=== PATIENT | male | born 1955 | race Caucasian/White ===

== ENCOUNTER 2017-11-22 05:37 | Inpatient (IN) | payer OTHER ==
[~2017-11-22] VITALS: Ht 177.8 cm; Wt 87.5 kg
[~2017-11-22 05:37] MED LIST: ALLO100; ALLO300; ALPR.5 PO; CHOL10002; CYCL10; DOXE25; FLUT110OIA; FLUT44OIA; GABA300 PO; ISODICACE; LEVSOD112; LEVSOD150 PO; LEVSOD25; LISI10; LISI20; LISI20 PO; LORA10ER; LOVA20; LOVA40; METF850; METH10; MORP15ER; NON COMPLIANT; NORT10; OMEP20ER; PHENY100ER PO; RANI150; ROSUVASTATIN CA40 MG PO; SALS750; TRAZ50 PO; [UNRECOGNIZED DRUG - OTHER]
[2017-11-22 06:20] LABS: BASOPHILS ABSOLUTE AUTO 0.01 K/mm3 (0.00-0.23); BASOPHILS PERCENT AUTO 0 % (0-2); EOSINOPHILS ABSOLUTE AUTO 0.06 K/mm3 (0.00-0.68); EOSINOPHILS PERCENT AUTO 1 % (0-6); Hematocrit 34.4 % (37.0-53.0); Hemoglobin 11.2 g/dL (13.5-17.5); IMMATURE GRAN ABSOLUTE AUTO 0.06 K/mm3 (0.00-0.10); IMMATURE GRAN PERCENT AUTO 1 % (0-1); LYMPHOCYTES ABSOLUTE AUTO 0.78 K/mm3 (0.84-5.20); LYMPHOCYTES PERCENT AUTO 9 % (21-46); MONOCYTES ABSOLUTE AUTO 0.38 K/mm3 (0.16-1.47); MONOCYTES PERCENT AUTO 4 % (4-13); Mean Corpuscular HGB 28.1 pg (26.0-34.0); Mean Corpuscular HGB Conc 32.6 g/dL (31.5-36.5); Mean Corpuscular Volume 86 fL (80-100); Mean Platelet Volume 11.2 fL (9.1-12.4); NEUTROPHILS ABSOLUTE AUTO 7.72 K/mm3 (1.96-9.15); NEUTROPHILS PERCENT AUTO 86 % (41-73); Platelet Count 329 K/mm3 (150-400); RDW Coefficient Variation 13.6 % (11.7-14.2); RDW Standard Deviation 42.9 fL (35.1-46.3); Red Blood Cell Count 3.99 M/mm3 (4.30-5.90); White Blood Cell Count 9.01 K/mm3 (4.00-11.30)
[2017-11-22 06:31] LABS: Alanine Aminotransfer (ALT/SGP 9 U/L (12-78); Albumin, Blood 2.6 g/dL (3.4-5.0); Albumin/Globulin Ratio 0.6 (0.8-1.8); Alk Phos 98 U/L (50-136); Anion Gap 10 mmol/L (6-16); Aspartate Aminotrans (AST/SGOT 12 U/L (12-37); Bilirubin, Total 0.3 mg/dL (0.1-1.0); Blood Urea Nitrogen 11 mg/dL (8-24); CO2, Blood 29 mmol/L (21-32); Calcium, Blood 9.2 mg/dL (8.5-10.1); Chloride, Blood 103 mmol/L (98-108); Globulin, Blood 4.1 g/dL (2.2-4.0); Glomerular Filtration Rate >60 (60-); Glucose, Blood 156 mg/dL (70-99); Potassium, Blood 3.2 mmol/L (3.5-5.5); Sodium, Blood 142 mmol/L (136-145); Total Protein, Blood 6.7 g/dL (6.4-8.2)
[2017-11-22] MEDS ORDERED: TRAM50 PO (06:59)
[2017-11-22] MEDS ORDERED: [UNRECOGNIZED DRUG - CODE] PO (08:26)
[2017-11-22] MEDS ORDERED: [UNRECOGNIZED DRUG - CODE] PO (08:28)
[2017-11-22] MEDS ORDERED: LISI20 PO (13:28)
[2017-11-22] MEDS ORDERED: PHENY100ER PO (13:32)
[2017-11-22] MEDS ORDERED: ACID REDUCER 1150 MG PO (13:34)
[2017-11-22] MEDS ORDERED: ROSU10TA PO (13:35)
[2017-11-22] MEDS ORDERED: TRAZ150T57 PO (13:37)
[2017-11-22] MEDS ORDERED: CHOL10002 PO (13:38)
[2017-11-22] MEDS ORDERED: METCAR500 PO (17:25)
[2017-11-23 04:01] LABS: BASOPHILS ABSOLUTE AUTO 0.01 K/mm3 (0.00-0.23); BASOPHILS PERCENT AUTO 0 % (0-2); EOSINOPHILS PERCENT AUTO 0 % (0-6); Hematocrit 30.1 % (37.0-53.0); Hemoglobin 9.8 g/dL (13.5-17.5); IMMATURE GRAN ABSOLUTE AUTO 0.05 K/mm3 (0.00-0.10); IMMATURE GRAN PERCENT AUTO 0 % (0-1); LYMPHOCYTES ABSOLUTE AUTO 0.46 K/mm3 (0.84-5.20); LYMPHOCYTES PERCENT AUTO 3 % (21-46); MONOCYTES ABSOLUTE AUTO 1.22 K/mm3 (0.16-1.47); MONOCYTES PERCENT AUTO 8 % (4-13); Mean Corpuscular HGB 27.7 pg (26.0-34.0); Mean Corpuscular HGB Conc 32.6 g/dL (31.5-36.5); Mean Corpuscular Volume 85 fL (80-100); Mean Platelet Volume 11.3 fL (9.1-12.4); NEUTROPHILS ABSOLUTE AUTO 13.09 K/mm3 (1.96-9.15); NEUTROPHILS PERCENT AUTO 88 % (41-73); Platelet Count 329 K/mm3 (150-400); RDW Standard Deviation 43.8 fL (35.1-46.3); Red Blood Cell Count 3.54 M/mm3 (4.30-5.90); White Blood Cell Count 14.83 K/mm3 (4.00-11.30)
[2017-11-23 04:28] LABS: Alanine Aminotransfer (ALT/SGP 12 U/L (12-78); Albumin, Blood 1.9 g/dL (3.4-5.0); Albumin/Globulin Ratio 0.5 (0.8-1.8); Alk Phos 68 U/L (50-136); Anion Gap 6 mmol/L (6-16); Aspartate Aminotrans (AST/SGOT 13 U/L (12-37); Bilirubin, Total 0.5 mg/dL (0.1-1.0); Blood Urea Nitrogen 8 mg/dL (8-24); Bun/Creatinine Ratio 16.6 (12.0-20.0); CO2, Blood 29 mmol/L (21-32); Calcium, Blood 8.7 mg/dL (8.5-10.1); Chloride, Blood 104 mmol/L (98-108); Creatinine, Blood 0.48 mg/dL (0.60-1.20); Globulin, Blood 3.7 g/dL (2.2-4.0); Glomerular Filtration Rate >60 (60-); Glucose, Blood 107 mg/dL (70-99); Potassium, Blood 4.2 mmol/L (3.5-5.5); Sodium, Blood 139 mmol/L (136-145); Total Protein, Blood 5.6 g/dL (6.4-8.2)
[2017-11-23 04:31] LABS: Thyroid Stimulating Hormone <0.005 uIU/mL (0.360-4.800)
[2017-11-23 04:33] LABS: Magnesium, Blood 1.1 mg/dL (1.6-2.4)
[2017-11-24 03:39] LABS: BASOPHILS ABSOLUTE AUTO 0.03 K/mm3 (0.00-0.23); BASOPHILS PERCENT AUTO 0 % (0-2); EOSINOPHILS ABSOLUTE AUTO 0.08 K/mm3 (0.00-0.68); EOSINOPHILS PERCENT AUTO 0 % (0-6); Hematocrit 28.7 % (37.0-53.0); Hemoglobin 9.3 g/dL (13.5-17.5); IMMATURE GRAN ABSOLUTE AUTO 0.13 K/mm3 (0.00-0.10); IMMATURE GRAN PERCENT AUTO 1 % (0-1); LYMPHOCYTES ABSOLUTE AUTO 0.65 K/mm3 (0.84-5.20); LYMPHOCYTES PERCENT AUTO 3 % (21-46); MONOCYTES ABSOLUTE AUTO 1.26 K/mm3 (0.16-1.47); MONOCYTES PERCENT AUTO 6 % (4-13); Mean Corpuscular HGB 27.7 pg (26.0-34.0); Mean Corpuscular HGB Conc 32.4 g/dL (31.5-36.5); Mean Corpuscular Volume 85 fL (80-100); Mean Platelet Volume 10.4 fL (9.1-12.4); NEUTROPHILS ABSOLUTE AUTO 20.46 K/mm3 (1.96-9.15); NEUTROPHILS PERCENT AUTO 90 % (41-73); Platelet Count 410 K/mm3 (150-400); RDW Coefficient Variation 14.3 % (11.7-14.2); RDW Standard Deviation 44.4 fL (35.1-46.3); Red Blood Cell Count 3.36 M/mm3 (4.30-5.90); White Blood Cell Count 22.61 K/mm3 (4.00-11.30)
[2017-11-24 03:56] LABS: Anion Gap 9 mmol/L (6-16); Blood Urea Nitrogen 10 mg/dL (8-24); Bun/Creatinine Ratio 20.1 (12.0-20.0); CO2, Blood 26 mmol/L (21-32); Calcium, Blood 8.8 mg/dL (8.5-10.1); Chloride, Blood 101 mmol/L (98-108); Glomerular Filtration Rate >60 (60-); Glucose, Blood 93 mg/dL (70-99); Magnesium, Blood 1.6 mg/dL (1.6-2.4); Phosphorus, Blood 2.2 mg/dL (2.5-4.9); Sodium, Blood 136 mmol/L (136-145)
[2017-11-25 03:54] LABS: BASOPHILS ABSOLUTE AUTO 0.05 K/mm3 (0.00-0.23); BASOPHILS PERCENT AUTO 0 % (0-2); EOSINOPHILS ABSOLUTE AUTO 0.29 K/mm3 (0.00-0.68); EOSINOPHILS PERCENT AUTO 1 % (0-6); Hematocrit 26.9 % (37.0-53.0); Hemoglobin 8.6 g/dL (13.5-17.5); IMMATURE GRAN PERCENT AUTO 1 % (0-1); LYMPHOCYTES ABSOLUTE AUTO 0.56 K/mm3 (0.84-5.20); LYMPHOCYTES PERCENT AUTO 3 % (21-46); MONOCYTES ABSOLUTE AUTO 1.51 K/mm3 (0.16-1.47); MONOCYTES PERCENT AUTO 7 % (4-13); Mean Corpuscular HGB 27.4 pg (26.0-34.0); Mean Corpuscular Volume 86 fL (80-100); Mean Platelet Volume 9.9 fL (9.1-12.4); NEUTROPHILS ABSOLUTE AUTO 19.34 K/mm3 (1.96-9.15); NEUTROPHILS PERCENT AUTO 88 % (41-73); Platelet Count 370 K/mm3 (150-400); RDW Coefficient Variation 14.4 % (11.7-14.2); Red Blood Cell Count 3.14 M/mm3 (4.30-5.90); White Blood Cell Count 22.05 K/mm3 (4.00-11.30)
[2017-11-25 04:11] LABS: Anion Gap 10 mmol/L (6-16); Blood Urea Nitrogen 9 mg/dL (8-24); Bun/Creatinine Ratio 19.4 (12.0-20.0); CO2, Blood 24 mmol/L (21-32); Calcium, Blood 8.6 mg/dL (8.5-10.1); Chloride, Blood 101 mmol/L (98-108); Creatinine, Blood 0.46 mg/dL (0.60-1.20); Glomerular Filtration Rate >60 (60-); Glucose, Blood 82 mg/dL (70-99); Magnesium, Blood 1.5 mg/dL (1.6-2.4); Phosphorus, Blood 2.7 mg/dL (2.5-4.9); Potassium, Blood 3.7 mmol/L (3.5-5.5); Sodium, Blood 135 mmol/L (136-145)
[2017-11-25 14:31] LABS: Hematocrit 27.2 % (37.0-53.0); Hemoglobin 8.9 g/dL (13.5-17.5); Mean Corpuscular HGB Conc 32.7 g/dL (31.5-36.5); Mean Corpuscular Volume 86 fL (80-100); Mean Platelet Volume 10.2 fL (9.1-12.4); Platelet Count 403 K/mm3 (150-400); RDW Coefficient Variation 14.2 % (11.7-14.2); RDW Standard Deviation 44.9 fL (35.1-46.3); Red Blood Cell Count 3.18 M/mm3 (4.30-5.90); White Blood Cell Count 23.23 K/mm3 (4.00-11.30)
[2017-11-26 03:51] LABS: Hematocrit 26.4 % (37.0-53.0); Hemoglobin 8.7 g/dL (13.5-17.5); Mean Corpuscular Volume 85 fL (80-100); Mean Platelet Volume 9.8 fL (9.1-12.4); Platelet Count 376 K/mm3 (150-400); RDW Coefficient Variation 14.2 % (11.7-14.2); RDW Standard Deviation 44.1 fL (35.1-46.3); Red Blood Cell Count 3.11 M/mm3 (4.30-5.90); White Blood Cell Count 19.44 K/mm3 (4.00-11.30)
[2017-11-27 05:20] LABS: Hematocrit 26.2 % (37.0-53.0); Hemoglobin 8.4 g/dL (13.5-17.5); Mean Corpuscular HGB 27.3 pg (26.0-34.0); Mean Corpuscular HGB Conc 32.1 g/dL (31.5-36.5); Mean Corpuscular Volume 85 fL (80-100); Mean Platelet Volume 10.4 fL (9.1-12.4); Platelet Count 352 K/mm3 (150-400); RDW Coefficient Variation 14.3 % (11.7-14.2); RDW Standard Deviation 44.5 fL (35.1-46.3); Red Blood Cell Count 3.08 M/mm3 (4.30-5.90); White Blood Cell Count 17.69 K/mm3 (4.00-11.30)
[2017-11-27 05:40] LABS: Anion Gap 9 mmol/L (6-16); Blood Urea Nitrogen 7 mg/dL (8-24); CO2, Blood 27 mmol/L (21-32); Calcium, Blood 8.7 mg/dL (8.5-10.1); Chloride, Blood 104 mmol/L (98-108); Creatinine, Blood 0.41 mg/dL (0.60-1.20); Glomerular Filtration Rate >60 (60-); Glucose, Blood 87 mg/dL (70-99); Potassium, Blood 3.2 mmol/L (3.5-5.5); Sodium, Blood 140 mmol/L (136-145)
[2017-11-27 12:52] LABS: Source, Urine Clean Catch
[2017-11-27 12:58] LABS: Appearance, Urine Clear (Clear); Bilirubin, Urine Neg (Neg); Blood, Urine 1+ (Neg); Color, Urine Yellow (P-Yellow); Glucose Qualitative, Urine Neg (Neg); Ketones, Urine Neg (Neg); Leukocyte Esterase, Urine 1+ (Neg); Nitrite, Urine Neg (Neg); Protein, Urine 1+ (Neg); Specific Gravity, Urine 1.015 (1.003-1.022); Urobilinogen, Urine 3+ (Normal); pH, Urine 6.5 (5.0-8.0)
[2017-11-27 13:10] LABS: Bacteria Few /hpf; Mucus Heavy (0-Heavy); Red Blood Cells, Urine 0-2 /hpf (0-2); Squamous Epithelial Cells Few /hpf (Few)
[2017-11-28 05:14] LABS: Hemoglobin 8.4 g/dL (13.5-17.5); Mean Corpuscular HGB 27.6 pg (26.0-34.0); Mean Corpuscular HGB Conc 32.3 g/dL (31.5-36.5); Mean Corpuscular Volume 86 fL (80-100); Mean Platelet Volume 10.6 fL (9.1-12.4); Platelet Count 329 K/mm3 (150-400); RDW Coefficient Variation 14.6 % (11.7-14.2); RDW Standard Deviation 45.4 fL (35.1-46.3); Red Blood Cell Count 3.04 M/mm3 (4.30-5.90); White Blood Cell Count 17.99 K/mm3 (4.00-11.30)
[2017-11-28 05:35] LABS: Anion Gap 9 mmol/L (6-16); Blood Urea Nitrogen 4 mg/dL (8-24); Bun/Creatinine Ratio 9.1 (12.0-20.0); CO2, Blood 28 mmol/L (21-32); Calcium, Blood 8.6 mg/dL (8.5-10.1); Chloride, Blood 102 mmol/L (98-108); Creatinine, Blood 0.44 mg/dL (0.60-1.20); Glomerular Filtration Rate >60 (60-); Glucose, Blood 82 mg/dL (70-99); Potassium, Blood 3.8 mmol/L (3.5-5.5); Sodium, Blood 139 mmol/L (136-145)
[2017-11-29 05:40] LABS: Hematocrit 26.4 % (37.0-53.0); Hemoglobin 8.5 g/dL (13.5-17.5); Mean Corpuscular HGB 27.5 pg (26.0-34.0); Mean Corpuscular HGB Conc 32.2 g/dL (31.5-36.5); Mean Corpuscular Volume 85 fL (80-100); Mean Platelet Volume 10.8 fL (9.1-12.4); Platelet Count 294 K/mm3 (150-400); RDW Coefficient Variation 14.6 % (11.7-14.2); RDW Standard Deviation 45.7 fL (35.1-46.3); Red Blood Cell Count 3.09 M/mm3 (4.30-5.90)
[2017-11-29 06:02] LABS: Anion Gap 9 mmol/L (6-16); Blood Urea Nitrogen 5 mg/dL (8-24); CO2, Blood 28 mmol/L (21-32); Calcium, Blood 8.8 mg/dL (8.5-10.1); Chloride, Blood 100 mmol/L (98-108); Glomerular Filtration Rate >60 (60-); Glucose, Blood 74 mg/dL (70-99); Sodium, Blood 137 mmol/L (136-145)
[2017-11-29] MEDS ORDERED: LEVSOD100 PO (09:24)
[2017-11-29] MEDS ORDERED: ALPR.5 PO (09:25)
[2017-11-29] MEDS ORDERED: VITAMIN D2000 UNIT PO (09:28)
[2017-11-29] MEDS ORDERED: BISA10S PR (09:29)
[2017-11-29] MEDS ORDERED: HYDR-86 PO (09:29)
[2017-11-29] MEDS ORDERED: METO5A PO (09:30)
[2017-11-29] MEDS ORDERED: LEVO750 PO (09:32)
[2017-11-29] MEDS ORDERED: CLIN300 PO (09:33)
[2017-11-29] MEDS ORDERED: METO50 PO (09:34)
[2017-11-29] MEDS ORDERED: POTCHL20ER PO (09:35)
[2017-11-29] MEDS ORDERED: PANT20 PO (09:35)
[2017-11-29] MEDS ORDERED: Prilosec Otc20 MG PO (10:52)
== END 2017-11-29 11:44 | disposition home or self-care (01) | DRG 328 ==
LOC: ER 05:37 → SURS 05:38
PROVIDERS: Family Medicine; Internal Medicine; Surgery
PROC: 0DB70ZZ Excision of Stomach, Pylorus, Open Approach (ICD-10-PCS; 2017-11-22)
PROC: 0DU Gastrointestinal System, Supplement (ICD-10-PCS; principal; 2017-11-22 08:30)
DX: K25.5 Chronic or unspecified gastric ulcer with perforation (principal); E11.43 Type 2 diabetes mellitus with diabetic autonomic (poly)neuropathy; G40.909 Epilepsy, unspecified, not intractable, without status epilepticus; F41.9 Anxiety disorder, unspecified; E03.9 Hypothyroidism, unspecified; M54.9 Dorsalgia, unspecified; G89.29 Other chronic pain; E11.40 Type 2 diabetes mellitus with diabetic neuropathy, unspecified; E78.5 Hyperlipidemia, unspecified; E87.6 Hypokalemia; E05.90 Thyrotoxicosis, unspecified without thyrotoxic crisis or storm; R25.2 Cramp and spasm; R00.0 Tachycardia, unspecified; F43.10 Post-traumatic stress disorder, unspecified; F51.5 Nightmare disorder
CPT/HCPCS: 36415; 71045; 74176; 80048; 80053; 81001; 82947; 83605; 83690; 83735; 84100; 84145; 84443; 84484; 85025; 85027; 87086; 88305; 88342; 93005; 93010; 96361; 96374; 96375; 97110; 97116; 97162; 97166; 97530; 97535; 99285-25; C9113; G8978; G8979; G8987; G8988; J1100; J1170; J1885; J1956; J2250; J2370; J2405; J2710; J2765; J3010; J3475; J3480; J3490; J7030; J7060; J7120

== ENCOUNTER 2019-02-20 09:59 | Emergency (ER) | payer OTHER ==
[~2019-02-20] VITALS: Ht 182.9 cm; Wt 112.9 kg
[~2019-02-20 09:59] MED LIST changes: +ACID REDUCER 1150 MG PO; +BISA10S PR; +CHOL10002 PO; +CLIN300 PO; +HYDR-86 PO; +LEVO750 PO; +LEVSOD100 PO; +METCAR500 PO; +METO50 PO; +METO5A PO; +PANT20 PO; +POTCHL20ER PO; +Prilosec Otc20 MG PO; +ROSU10TA PO; +TRAM50 PO; +TRAZ150T57 PO; +VITAMIN D2000 UNIT PO; +[UNRECOGNIZED DRUG - CODE] PO; +[UNRECOGNIZED DRUG - CODE] PO
[2019-02-20 10:22] LABS: BASOPHILS ABSOLUTE AUTO 0.08 K/mm3 (0.00-0.23); BASOPHILS PERCENT AUTO 1 % (0-2); EOSINOPHILS ABSOLUTE AUTO 0.15 K/mm3 (0.00-0.68); EOSINOPHILS PERCENT AUTO 2 % (0-6); Hematocrit 50.3 % (37.0-53.0); Hemoglobin 16.3 g/dL (13.5-17.5); IMMATURE GRAN ABSOLUTE AUTO 0.03 K/mm3 (0.00-0.10); IMMATURE GRAN PERCENT AUTO 0 % (0-1); LYMPHOCYTES ABSOLUTE AUTO 1.09 K/mm3 (0.84-5.20); LYMPHOCYTES PERCENT AUTO 13 % (21-46); MONOCYTES ABSOLUTE AUTO 0.86 K/mm3 (0.16-1.47); MONOCYTES PERCENT AUTO 11 % (4-13); Mean Corpuscular HGB 28.2 pg (26.0-34.0); Mean Corpuscular HGB Conc 32.4 g/dL (31.5-36.5); Mean Corpuscular Volume 87 fL (80-100); Mean Platelet Volume 11.3 fL (9.1-12.4); NEUTROPHILS ABSOLUTE AUTO 5.95 K/mm3 (1.96-9.15); NEUTROPHILS PERCENT AUTO 73 % (41-73); Platelet Count 210 K/mm3 (150-400); RDW Coefficient Variation 14.9 % (11.7-14.2); RDW Standard Deviation 46.6 fL (35.1-46.3); Red Blood Cell Count 5.78 M/mm3 (4.30-5.90); White Blood Cell Count 8.16 K/mm3 (4.00-11.30)
[2019-02-20 10:44] LABS: Alanine Aminotransfer (ALT/SGP 18 U/L (12-78); Albumin, Blood 3.8 g/dL (3.4-5.0); Albumin/Globulin Ratio 0.7 (0.8-1.8); Alk Phos 120 U/L (50-136); Anion Gap 10 mmol/L (6-16); Aspartate Aminotrans (AST/SGOT 17 U/L (12-37); Bilirubin, Total 1.9 mg/dL (0.1-1.0); Blood Urea Nitrogen 10 mg/dL (8-24); CO2, Blood 28 mmol/L (21-32); Chloride, Blood 103 mmol/L (98-108); Creatinine, Blood 0.83 mg/dL (0.60-1.20); Globulin, Blood 5.1 g/dL (2.2-4.0); Glomerular Filtration Rate >60 (60-); Glucose, Blood 91 mg/dL (70-99); Potassium, Blood 3.1 mmol/L (3.5-5.5); Sodium, Blood 141 mmol/L (136-145); Total Protein, Blood 8.9 g/dL (6.4-8.2)
[2019-02-20 12:21] LABS: Source, Urine Clean Catch
[2019-02-20] MEDS ORDERED: Zantac150 MG PO (12:29)
[2019-02-20 12:32] LABS: Appearance, Urine Clear (Clear); Blood, Urine 1+ (Neg); Color, Urine Amber (P-Yellow); Glucose Qualitative, Urine Neg (Neg); Ketones, Urine 4+ (Neg); Leukocyte Esterase, Urine 1+ (Neg); Nitrite, Urine Neg (Neg); Protein, Urine 2+ (Neg); Specific Gravity, Urine 1.015 (1.003-1.022); Urobilinogen, Urine 2+ (Normal); pH, Urine 6.5 (5.0-8.0)
[2019-02-20 12:41] LABS: Bilirubin, Urine 2+ (Neg)
[2019-02-20 12:51] LABS: Bacteria Few /hpf; Mucus Heavy (0-Heavy); Squamous Epithelial Cells Not Seen /hpf (Few)
[2019-02-20] MEDS ORDERED: CEPH500 PO (13:25)
== END 2019-02-20 13:32 | disposition home or self-care (01) ==
LOC: ER 09:59
PROVIDERS: Emergency Medicine
DX: K25.9 Gastric ulcer, unspecified as acute or chronic, without hemorrhage or perforation (principal); E11.40 Type 2 diabetes mellitus with diabetic neuropathy, unspecified; F41.9 Anxiety disorder, unspecified; E03.9 Hypothyroidism, unspecified; E11.43 Type 2 diabetes mellitus with diabetic autonomic (poly)neuropathy; K31.84 Gastroparesis; Z87.81 Personal history of (healed) traumatic fracture; Z88.0 Allergy status to penicillin; Z88.5 Allergy status to narcotic agent; Z88.2 Allergy status to sulfonamides; Z79.899 Other long term (current) drug therapy; Z79.891 Long term (current) use of opiate analgesic
CPT/HCPCS: 36415; 74176; 80053; 81001; 83690; 85025; 87086; 96361; 96374; 96375; 99284-25; C9113; J2405; J3010; J7030

== ENCOUNTER 2019-06-24 11:47 | Emergency (ER) | payer OTHER ==
[~2019-06-24] VITALS: Ht 177.8 cm; Wt 121.6 kg
[~2019-06-24 11:47] MED LIST changes: +CEPH500 PO; +Zantac150 MG PO
[2019-06-24] MEDS ORDERED: FAMO10 PO (13:52)
[2019-06-24] MEDS ORDERED: PANT20 PO (13:52)
[2019-06-24] MEDS ORDERED: Robaxin-750750 MG PO (14:42)
[2019-06-24] MEDS ORDERED: Percocet 7.5-31 EACH PO (15:38)
[2019-06-24] MEDS ORDERED: Crutch1 EACH MISC (15:47)
== END 2019-06-24 16:02 | disposition home or self-care (01) ==
LOC: ER 11:47
DX: S82.041A Displaced comminuted fracture of right patella, initial encounter for closed fracture (principal); E11.40 Type 2 diabetes mellitus with diabetic neuropathy, unspecified; E11.43 Type 2 diabetes mellitus with diabetic autonomic (poly)neuropathy; K31.84 Gastroparesis; F41.9 Anxiety disorder, unspecified; E03.9 Hypothyroidism, unspecified; Z88.0 Allergy status to penicillin; Z88.8 Allergy status to other drugs, medicaments and biological substances; Z88.2 Allergy status to sulfonamides; Z91.09 Other allergy status, other than to drugs and biological substances; Z79.899 Other long term (current) drug therapy; W01.0XXA Fall on same level from slipping, tripping and stumbling without subsequent striking against object, initial encounter
CPT/HCPCS: 29505; 73564; 73700; 99284-25

== ENCOUNTER 2022-04-04 15:49 | Emergency (ER) | payer OTHER ==
[~2022-04-04] VITALS: Ht 177.8 cm; Wt 104.3 kg
[~2022-04-04 15:49] MED LIST changes: +Crutch1 EACH MISC; +FAMO10 PO; +Pepcid20 MG PO; +Percocet 7.5-31 EACH PO; +Robaxin-750750 MG PO; +Zofran4 MG PO
== END 2022-04-04 18:00 | disposition home or self-care (01) ==
LOC: ER 15:49
DX: M54.42 Lumbago with sciatica, left side (principal); E11.40 Type 2 diabetes mellitus with diabetic neuropathy, unspecified; G40.909 Epilepsy, unspecified, not intractable, without status epilepticus; E03.9 Hypothyroidism, unspecified; Z88.0 Allergy status to penicillin; Z88.2 Allergy status to sulfonamides; Z91.041 Radiographic dye allergy status; Z79.899 Other long term (current) drug therapy
CPT/HCPCS: A9270

== ENCOUNTER 2022-07-20 16:52 | Inpatient (IN) | payer OTHER ==
[~2022-07-20] VITALS: Ht 182.9 cm; Wt 112.7 kg
[~2022-07-20 16:52] MED LIST changes: +EUTHYROX50 MCG PO; -LEVSOD100 PO; +Methocarbamol500 MG PO; +PANT40 PO; -Robaxin-750750 MG PO
[2022-07-20 17:05] LABS: Calcium, Ionized (POC) >2.50 mmol/L (1.10-1.46); Chloride (POC) 84 mmol/L (98-108); Creatinine (POC) 3.9 mg/dL (0.8-1.3); Glucose (ISTAT POC) 154 mg/dL (70-99); Potassium (POC) <2.0 mmol/L (3.5-5.5); Sodium (POC) 127 mmol/L (135-148); Total CO2 (POC) 37 mmol/L (21-32)
[2022-07-20 17:27] LABS: BASOPHILS ABSOLUTE AUTO 0.03 K/mm3 (0.00-0.23); BASOPHILS PERCENT AUTO 0 % (0-2); EOSINOPHILS ABSOLUTE AUTO 0.01 K/mm3 (0.00-0.68); EOSINOPHILS PERCENT AUTO 0 % (0-6); Hematocrit 49.1 % (37.0-53.0); Hemoglobin 17.5 g/dL (13.5-17.5); IMMATURE GRAN ABSOLUTE AUTO 0.25 K/mm3 (0.00-0.10); IMMATURE GRAN PERCENT AUTO 1 % (0-1); LYMPHOCYTES ABSOLUTE AUTO 0.59 K/mm3 (0.84-5.20); LYMPHOCYTES PERCENT AUTO 3 % (21-46); MONOCYTES PERCENT AUTO 4 % (4-13); Mean Corpuscular HGB 29.9 pg (26.0-34.0); Mean Corpuscular HGB Conc 35.6 g/dL (31.5-36.5); Mean Corpuscular Volume 84 fL (80-100); Mean Platelet Volume 12.9 fL (9.1-12.4); NEUTROPHILS ABSOLUTE AUTO 20.52 K/mm3 (1.96-9.15); NEUTROPHILS PERCENT AUTO 92 % (41-73); Platelet Count 262 K/mm3 (150-400); RDW Coefficient Variation 12.5 % (11.7-14.2); RDW Standard Deviation 37.6 fL (35.1-46.3); Red Blood Cell Count 5.85 M/mm3 (4.30-5.90)
[2022-07-20 17:44] LABS: Base Excess Venous 14.6 mmol/L; Bicarbonate Venous 36.1 mmol/L (24.0-30.0)
[2022-07-20 18:20] LABS: Albumin, Blood 3.6 g/dL (3.4-5.0); Bilirubin, Total 1.9 mg/dL (0.1-1.0); Calcium, Blood 21.6 mg/dL (8.5-10.1); Creatinine, Blood 2.81 mg/dL (0.60-1.20); Globulin, Blood 3.7 g/dL (2.2-4.0); Potassium, Blood 2.2 mmol/L (3.5-5.5); Total Protein, Blood 7.3 g/dL (6.4-8.2)
[2022-07-20 18:35] LABS: Source, Urine Straight Cath
[2022-07-20 18:39] LABS: Appearance, Urine Clear (Clear); Bilirubin, Urine Neg (Neg); Blood, Urine 5+ (Neg); Color, Urine Yellow (P-Yellow); Glucose Qualitative, Urine Neg (Neg); Ketones, Urine Neg (Neg); Leukocyte Esterase, Urine 1+ (Neg); Nitrite, Urine Neg (Neg); Protein, Urine 2+ (Neg); Specific Gravity, Urine 1.015 (1.003-1.022); Urobilinogen, Urine NORM (Normal)
[2022-07-20 18:49] LABS: Squamous Epithelial Cells Rare /hpf (Few)
[2022-07-20 18:50] LABS: Bacteria Few /hpf; Hyaline Casts 0-2 /lpf (0-2)
[2022-07-20 18:56] LABS: Magnesium, Blood 1.4 mg/dL (1.6-2.4); Phosphorus, Blood 1.4 mg/dL (2.5-4.9)
[2022-07-20 20:48] LABS: U Amphetamine Screen Not Detected; U Barbituate Screen Not Detected; U Benzodiazapine Screen Not Detected; U Buprenorphine Screen Not Detected; U Cannabinoids Screen Not Detected; U Cocaine Screen Not Detected; U Methadone Screen Not Detected; U Methamphetamine Screen Not Detected; U Opiates Screen Not Detected; U Oxycodone Screen Not Detected; U Phencyclidine Screen Not Detected; U Propoxyphene Screen Not Detected
[2022-07-20 20:54] LABS: Influenza A, PCR NEGATIVE (NEGATIVE); Influenza B, PCR NEGATIVE (NEGATIVE); Resp Syncytial Virus, PCR NEGATIVE (NEGATIVE); SARS-Cov-2 (COVID-19) PCR, MMC NEGATIVE (NEGATIVE)
[2022-07-20 21:17] LABS: Creatine Kinase MB 171.8 ng/mL (0.0-3.6)
[2022-07-20 21:21] LABS: Creatine Kinase MB Index 1.6 (0.0-4.0)
[2022-07-20 22:00] VITALS: BP 143/99
[2022-07-20 23:44] LABS: Bun/Creatinine Ratio 19.6 (12.0-20.0); Calcium, Blood 18.9 mg/dL (8.5-10.1); Creatinine, Blood 2.19 mg/dL (0.60-1.20); Potassium, Blood 2.8 mmol/L (3.5-5.5)
[2022-07-21 00:08] VITALS: BP 106/77
[2022-07-21 04:07] VITALS: BP 98/59
[2022-07-21 05:16] LABS: Bun/Creatinine Ratio 19.1 (12.0-20.0); Calcium, Blood 17.9 mg/dL (8.5-10.1); Creatinine, Blood 2.15 mg/dL (0.60-1.20); Potassium, Blood 2.4 mmol/L (3.5-5.5)
--- NOTE | 2022-07-21 06:26 | NUR ---
SHIFT SUMMARY PATIENT IS CONFUSED ALERT TO SELF ONLY. AWAKENS EASILY TO VERBAL COMMAND. VS STABLE, ON 2L NC. CALCIUM TRENDING DOWN FROM 21.6 POTASSIUM AT 2.4 AFTER REPLACEMENT IN ED. DR. PATRICK ARCE ADDITIONAL 60MEQ IV. CK AT 5764. DR. NGUYEN AWARE OF CRITICAL VALUES. HESTER IN PLACE TO GRAVITY.
[2022-07-21 08:00] VITALS: BP 100/82
--- NOTE | 2022-07-21 08:00 | NUR ---
INITIAL ASSESSMENT PATIENT LETHARGIC. PATIENT WAKES TO LOUD VOICE. SPEECH MUMBLED AND SLURRED. PATIENT ABLE TO ANSWER NAME. PATIENT DISORIENTED TO EVERYTHING BUT NAME. PATIENT THOUGHT HE WAS AT HOME. FLAT AFFECT NOTED. PATIENT WEAK BUT ABLE TO MOVE ALL EXTREMITIES. PATIENT AFEBRILE. NO COMPLAINTS OF PAIN. LUNGS DIMINISHED THROUGHOUT. SHALLOW BREATHS NOTED. PATIENT SATTING 90% AND GREATER ON 2 L NC. PATIENT IN SR WITH BBB. HR IN THE 60S. BP 100/82. PATIENT NPO. HESTER DRAINING DARK YELLOW COLORED URINE. SKIN PALE AND COOL. NS INFUSING AT 150 MLS/ HOUR. BED LOW, CALL LIGHT IN REACH. WILL CONTINUE TO MONITOR PATIENT FREQUENTLY THROUGHTOUT SHIFT.
--- NOTE | 2022-07-21 09:00 | NUR ---
DR. NGUYEN TO ROOM TO SEE PATIENT. INFORMED THAT POTASSIUM LOW AT 2.4 THIS AM AND THAT PATIENT RECEIVING 60 MEQ KCL REPLACEMENT. INFORMED THAT CALCIUM 17.9 BUT THAT IT IS IMPROVED. ORDERS RECEIVED FOR SWALLOW EVAL AND PT/OT.
--- NOTE | 2022-07-21 09:22 | NUR ---
DR. NGUYEN INFORMED THAT PATIENT'S FRIEND, SABI, STATED THAT PATIENT HAS BEEN COMPLAINING OF STOMACH ISSUES AND THAT SHE GOT HIM SOME BOTTLES OF TUMS A COUPLE DAYS AGO. PATIENT WORRIED THAT MAYBE HE WAS TAKING TOO MANY. FRIEND ALSO STATED THAT SHE IS CONCERNED PATIENT TAKES TOO MUCH GABAPENTIN BECAUSE HE TALKS SLOW. FRIEND STATED THAT PATIENT HAD RECENT KNEE SURGERY. INFORMED DR. NGUYEN THAT [facility] HAS BEEN CONTACTED TO GET MED LIST. NO ORDERS OBTAINED AT THIS TIME.
[2022-07-21] MEDS ORDERED: HYDROCODONE-AC1 EA19 PO (09:35)
[2022-07-21 12:25] VITALS: BP 131/78
--- NOTE | 2022-07-21 12:30 | NUR ---
PATIENT AFEBRILE. NO COMPLAINTS OF PAIN. PATIENT REMAINS LETHARGIC. O2 DECREASED TO 1 L NC AND REMAINS SATTING 90% AND GREATER. HR IN THE 60S. SBP IN THE 130S. BLOOD SUGAR 85. NO OTHER ACUTE CHANGES TO NOTE ON AT THIS TIME. WILL CONTINUE TO MONITOR.
[2022-07-21 13:17] LABS: Magnesium, Blood 1.6 mg/dL (1.6-2.4)
[2022-07-21 13:25] LABS: Bun/Creatinine Ratio 18.7 (12.0-20.0); Calcium, Blood 16.8 mg/dL (8.5-10.1); Creatinine, Blood 2.14 mg/dL (0.60-1.20); Phosphorus, Blood 2.9 mg/dL (2.5-4.9); Potassium, Blood 3.2 mmol/L (3.5-5.5)
[2022-07-21 16:53] VITALS: BP 134/95
--- NOTE | 2022-07-21 17:00 | NUR ---
PATIENT AFEBRILE. HR IN THE 70S. SBP IN THE 130S. NEURO STATUS REMAINS UNCHANGED. NO ACUTE CHANGES TO NOTE ON AT THIS TIME. WILL CONTINUE TO MONITOR.
--- NOTE | 2022-07-21 17:56 | NUR ---
DR. NGUYEN INFORMED THAT RAISED REDDENED AREAS ARE NOTED TO TOP OF FOREHEAD AND TOP OF HEAD. PATIENT STATES THESE AREAS ARE TENDER TO THE TOUCH. PATIENT STATED HE FELL MULTIPLE TIMES AT HOME. DR. NGUYEN ORDERED FOR CT OF HEAD.
--- NOTE | 2022-07-21 18:04 | NUR ---
SHIFT SUMMARY PATIENT REMAINED LETHARGIC AND SLEPT MOST OF THE SHIFT. PATIENT HAS BEEN MORE AWAKE LATER THIS AFTERNOON. SPEECH REMAINS MUMBLED AND SLURRED. PATIENT REMAINS ONLY ORIENTED TO SELF AND THAT HE HAS BEEN WEAK AT HOME. PATIENT HAS REMAINED AFEBRILE. PATIENT DECREASED FROM 2 L NC TO 1 L NC AND REMAINS SATTING 90% AND GREATER. PATIENT HAS REMAINED IN SR, HR 60S TO 70S. SBP LOW 100S TO 130S. NO BM THIS SHIFT. HESTER DRAINED 1025 MLS OF DARK YELLOW URINE. RAISED, REDDENED AREAS NOTED TO FOREHEAD AND TOP OF HEAD AT END OF SHIFT. PATIENT SIGNALS THEY ARE TENDER. DR. NGUYEN NOTED AND HEAD CT ORDER PLACED. NS INFUSING AT 150 MLS/ HOUR. PATIENT RECEIVED 80 MEQ KCL REPLACEMENT TODAY. NECK ULTRASOUND PERFORMED THIS SHIFT. BED LOW, CALL LIGHT IN REACH. REPORT WILL BE GIVEN TO ASSUMING FRUIT GRADER OPERATOR NURSE SHORTLY.
[2022-07-21 20:20] VITALS: BP 142/95
[2022-07-21 21:58] LABS: Calcium, Blood 15.8 mg/dL (8.5-10.1); Creatinine, Blood 2.11 mg/dL (0.60-1.20); Potassium, Blood 3.3 mmol/L (3.5-5.5)
[2022-07-22] VITALS (8 sets, daily range): BP systolic 110–132; BP diastolic 66–98
[2022-07-22 04:00] LABS: Magnesium, Blood 1.2 mg/dL (1.6-2.4)
[2022-07-22 04:11] LABS: Bun/Creatinine Ratio 15.8 (12.0-20.0); Calcium, Blood 15.3 mg/dL (8.5-10.1); Creatinine, Blood 2.21 mg/dL (0.60-1.20); Phosphorus, Blood 1.6 mg/dL (2.5-4.9); Potassium, Blood 2.9 mmol/L (3.5-5.5)
--- NOTE | 2022-07-22 05:06 | NUR ---
END OF SHIFT PT AWAKE ALL NIGHT UNTIL 429, NS AT 150, VSS, FC WITH GOOD UO, ORAL CARE TIMES 2, CA 15.3, K 2.9
[2022-07-22 15:23] LABS: Bun/Creatinine Ratio 15.5 (12.0-20.0); Calcium, Blood 14.9 mg/dL (8.5-10.1); Creatinine, Blood 2.45 mg/dL (0.60-1.20); Potassium, Blood 2.7 mmol/L (3.5-5.5)
--- NOTE | 2022-07-22 18:12 | NUR ---
SHIFT SUMMARY; ASSUMED CARE AT 0700. RESPONDS TO VERBAL STIMULI WITH MOANS, INCREASED MENTATION T/O DAY TO ANSWERING QUESTIONS WITH SLOW SENTENCES. Q2 TURNS DURING SHIFT. NS INFUSING AT 150ML/HR. HESTER IN PLACE DRAINING YELLOW URINE. EVALUATED IN EVENING BY DR. MACHUCA. REMAINS NPO DUE REMAINING LETHARGIC. VSS, NO ACUTE CHANGES, WILL CONTINUE TO MONITOR AND TREAT UNTIL CHANGE OF SHIFT.
[2022-07-23 01:52] LABS: Creatinine, Urine Random 79.1 mg/dL (27.00-270.00); Potassium, Urine, Random 40.9 mmol/L (12.0-75.0); Protein, Urine Random 32.1 mg/dL (0.0-11.9)
[2022-07-23 04:23] LABS: Magnesium, Blood 1.3 mg/dL (1.6-2.4)
[2022-07-23 04:36] LABS: Bun/Creatinine Ratio 15.2 (12.0-20.0); Creatinine, Blood 2.57 mg/dL (0.60-1.20); Phosphorus, Blood 1.8 mg/dL (2.5-4.9); Potassium, Blood 2.6 mmol/L (3.5-5.5)
--- NOTE | 2022-07-23 06:51 | NUR ---
END OF SHIFT NO ISSUES OVERNIGHT, VSS, LABS THIS AM WORSENED, NS OFF PER ORDERS, ORAL CARE TIMES 2
[2022-07-23 07:15] VITALS: BP 118/78
--- NOTE | 2022-07-23 07:23 | NUR ---
Received report from Noc RN. Patient sleeping and awakens easily and is alert and oriented and able to communicate his needs. He is on 2L O2 via NC and sats <90%. he has 20ga IV in LH and in RW and both are flushed and SL'd. H e has 18Fr López draining to gravity yellow urine in adequate amounts. ST called and will be coming shortly for speech eval, and patient acknowledged was OK with it. He LAYNE but weak and self positions slowly and is 2 person assist up to bedside.
--- NOTE | 2022-07-23 10:25 | NUR ---
Patient up to chair with PT and sat up for awhile. He recieved bath and oral care and combed knots from hair. He was assisted by 2 with walker back to bed for Nuc. med procedure and went by cyrus. He tolerated PO med this am.
--- NOTE | 2022-07-23 11:10 | NUR ---
Patient back from procedure and rehooked up lucas and shanon gloria. Sat him up with water. He remains on 2L O2 via NC and sats >90%. H eis alert enough to communicate needs and oriented to self and sometimes place. Speech clear enough to understand.
--- NOTE | 2022-07-23 15:06 | NUR ---
Patient has been sleeping since back from [facility] at 1300. He has several attends changes since bragg pulled.Patient has been turned q2 and linen change. He remains on 2L O2 via NC and sats >90%. MAEW but weak and slow. Still oriented to self and place at times. Tries to assist with care.
--- NOTE | 2022-07-23 17:58 | NUR ---
pt able to answer some questions but slowly. He is starting to recall some events. States he has a headache and has had ringing in his ears for years. He has chronic pain. Ana his step daughter called and stated he has been depressed since his parents . He lives in a trailer on his friends property comes to the house to shower. He isolates and feels like he is a burden. Ana states he is welcome and care for him. She states he has been taking too much gabipentin. And they are unsure if he is taking any of his thyroid meds. Sent a request to [place] for a copy of his advance directive. will need to find a decision maker for future care needs. May need placement.
[2022-07-23 18:11] VITALS: BP 134/102
--- NOTE | 2022-07-23 18:17 | NUR ---
Patient remains awake in bed and communicates his needs when in room doing care. He speaks in soft mumbled voice but able to meet needs. He continues to be incontinent in attends. He was able to eat small amount dinner with feeder. He received 18/8 PowerGlide By Mara ROBLES in [facility]. He continues on 2L O2 via and sats >90%. CBG 122 no coverage needed.
[2022-07-23 20:16] VITALS: BP 120/98
[2022-07-24 03:59] VITALS: BP 122/83
[2022-07-24 05:09] LABS: Magnesium, Blood 1.6 mg/dL (1.6-2.4)
[2022-07-24 06:00] LABS: Bun/Creatinine Ratio 18.1 (12.0-20.0); Calcium, Blood 13.1 mg/dL (8.5-10.1); Creatinine, Blood 2.32 mg/dL (0.60-1.20); Phosphorus, Blood 1.6 mg/dL (2.5-4.9); Potassium, Blood 2.4 mmol/L (3.5-5.5)
--- NOTE | 2022-07-24 06:35 | NUR ---
SHIFT SUMMARY PATEINT ALERT AND ORIENTED TO SELF ONLY, IS CONFUSED AND DELUSIONAL WITH MUMBLED SPEECH. HE IS WEAK BUT TAKES DIRECTIONS WELL. VITAL SIGNS STABLE. PATIENT HAD NO COMPLAINTS OF PAIN OR SHORTNESS OF BREATH. SPO2 >90% ON ROOM AIR. SLIGHT EDEMA NOTED IN HANDS AND FEET. CRITICAL LAB RESULTS CALLED TO DR RENEE. 40 MEQ PO POTASSIUM Q4 X3 DOSES ORDERED FOR POTASSIUM AF 2.4. WILL CONTINUE TO MONITOR. CALL LIGHT WITHIN REACH.
[2022-07-24 08:19] VITALS: BP 113/77
--- NOTE | 2022-07-24 09:00 | NUR ---
PT ARRIVED TO THE MEDICAL FLOOR FROM THE PCU VIA GURNY. PT WAS TRANSFERED TO THE BED. PT IS DROWSY AT THIS TIME. PT ORIENTED TO THE CALL SYSTEM. REPORT TAKE FROM NATHANAEL IN PCU I AGREE WITH HER ASSESSMENT. CALL LIGHT IN REACH. BED ALARM ON WILL CONTINUE TO MONITOR AND ASSESS FOR CHANGES
[2022-07-24 09:14] VITALS: BP 97/77
[2022-07-24 14:46] VITALS: BP 110/78
--- NOTE | 2022-07-24 16:12 | NUR ---
PT IS MORE ALERT THIS AFTERNOON COMPARED TO THIS AM. THE CONTINUES TO HAVE CONFUSION AND AT TIMES VISUAL HALUCINATIONS. PT DENIES PAIN, N/V, AND SOB AT THIS TIME. PT IS HAVING LOSE STOOLS. PT IS A MAX ASSIST UP. THE PT WAS REPOSITIONED T/O THE DAY. CALL LIGHT IN REACH. BED ALARM ON, WILL CONTINUE TO MONITOR AND ASSESS FOR CHANGES
[2022-07-24 19:23] VITALS: BP 109/81
[2022-07-25 03:50] VITALS: BP 105/81
--- NOTE | 2022-07-25 05:56 | NUR ---
ACADEMIC DIRECTOR SUMMARY NO ACUTE CHANGES. PT A/OX TO SELF. SLOW TO RESPOND. PT MAKES NONSENSICAL STATEMENTS, UNABLE TO STATE WHERE HE IS, AND HAS DIFFICULTY FOLLOWING DIRECTIONS. PT HAS SLEPT WELL T/O THE NIGHT WITH BRIEF PERIODS OF WAKEFULNESS. CONFUSION AND SOME ATTEMPTS OOB. BED ALARM SET. CALL LIGHT ACCESSIBLE. PT TOLERATING PO INTAKE. CBG CHECKS CHANGED TO AC/HS. NO COVERAGE ORDERED AT THIS TIME. WILL UPDATE ONCOMING NURSE.
[2022-07-25 07:41] VITALS: BP 111/85
[2022-07-25 09:31] LABS: Bun/Creatinine Ratio 19.4 (12.0-20.0); Calcium, Blood 12.2 mg/dL (8.5-10.1); Creatinine, Blood 2.11 mg/dL (0.60-1.20); Magnesium, Blood 1.4 mg/dL (1.6-2.4); Potassium, Blood 2.9 mmol/L (3.5-5.5)
[2022-07-25 15:11] LABS: ALBUMIN 2.5 g/dL (2.9-4.4); ALPHA-1-GLOBULIN 0.4 g/dL (0.0-0.4); ALPHA-2-GLOBULIN 0.6 g/dL (0.4-1.0); BETA GLOBULIN 0.8 g/dL (0.7-1.3); GAMMA GLOBULIN 0.8 g/dL (0.4-1.8); GLOBULIN, TOTAL 2.6 g/dL (2.2-3.9); IMMUNOGLOBULIN A, QN, SERUM 156 mg/dL (61-437); IMMUNOGLOBULIN G, QN, SERUM 773 mg/dL (603-1613); IMMUNOGLOBULIN M, QN, SERUM 265 mg/dL (20-172); M-SPIKE Not Observed g/dL (Not Observed); PROTEIN, TOTAL, SERUM 5.1 g/dL (6.0-8.5)
[2022-07-25 15:32] VITALS: BP 109/75
--- NOTE | 2022-07-25 16:59 | NUR ---
PT IS ALERT ORIENTED TO SELF ONLY, PT IS PLEASANT AND COOPERATIVE. THE PT HAS HAD VISUAL HALUCINATIONS TODAY. PT DENIED PAIN, N/V OR SOB TODAY. PT APPEARS TO BE BREATHING EASILY ON RA. PT REPOSTIONED T/O THE DAY. CALL LIGHT IN REACH, WILL CONTINUE TO MONITOR AND ASSESS FOR CHANGES
--- NOTE | 2022-07-25 17:33 | NUR ---
pt records and [facility]. placed aon chart review of history with healthcare consultant. pt my need increased psyciatric care for anexiety.
[2022-07-25 19:16] VITALS: BP 105/72
[2022-07-26 03:07] VITALS: BP 110/77
--- NOTE | 2022-07-26 05:32 | NUR ---
MARLIN IS A VERY PLEASANTLY CONFUSED GENTLEMAN WHO IS ALERT TO SELF ONLY, AND SPENT A LARGE PART OF HIS TIME HAVING BOTH VISUAL AND AUDITORY HALLUCINATIONS. HE HAD NO COMPLAINTS OF PAIN OR DISCOMFORT, AND WAS COOPERATIVE WITH STAFF WITH TURNING, CHANGING, ETC.. LEFT ARM REMAINS SWOLLEN FROM INFILTRATION YESTERDAY. ICE PACKS ALT WITH WARM BLANKETS AND ELEVATION OF PILLOW KEPT HIM COMFORTABLE OVERNIGHT. BED LOW AND LOCKED AND ALARM ON BED SET FOR PATIENT SAFETY
[2022-07-26 06:30] LABS: Magnesium, Blood 1.4 mg/dL (1.6-2.4)
[2022-07-26 06:39] LABS: Bun/Creatinine Ratio 20.7 (12.0-20.0); Calcium, Blood 11.2 mg/dL (8.5-10.1); Creatinine, Blood 2.08 mg/dL (0.60-1.20); Phosphorus, Blood 2.4 mg/dL (2.5-4.9); Potassium, Blood 2.7 mmol/L (3.5-5.5)
[2022-07-26 07:34] VITALS: BP 108/70
[2022-07-26 16:08] VITALS: BP 115/88
--- NOTE | 2022-07-26 18:18 | NUR ---
SHIFT SUMMARY- PT ALERT AND ORIENTED TO SELF. LOST IV ACCESS IN THE LEFT HAND, NEW IV IN THE RIGHT WRIST. PT HAS RECIEVED IV MAG AND IV POTASSIUM T/O THE SHIFT. PT HAS C/O AUDITORY AND VISUAL HALLUCINATIONS, ASKING STAFF ABOUT THE WATER FLOODING INTO HIS ROOM OR C/O THE PEOPLE LAUGHING AT HIM FROM HIS PHONE ETC. PT WAS REPOSITIONED FREQUENTLY TODAY AND RECIEVED A BED BATH WELL. PT IS CURRENTLY IN BED, CALL LIGHT IN REACH NO S&S OF DISTRESS NOTED WILL CTM AND PASS ON TO NIGHT RN IN BEDSIDE REPORT. PT IS INCONTINENT ATTENDS IN PLACE, PG INFLTRATED IN ISABELLA YESTERDAY, ISABELLA IS STILL SWOLLEN, ELEVATED ON PILLOWS OFTEN PT WOULD TOLLERATE.
[2022-07-26 20:31] VITALS: BP 131/79
[2022-07-27 04:55] VITALS: BP 113/78
[2022-07-27 05:11] LABS: Bun/Creatinine Ratio 18.8 (12.0-20.0); Calcium, Blood 10.2 mg/dL (8.5-10.1); Creatinine, Blood 1.91 mg/dL (0.60-1.20); Magnesium, Blood 1.4 mg/dL (1.6-2.4); Phosphorus, Blood 2.7 mg/dL (2.5-4.9)
--- NOTE | 2022-07-27 05:31 | NUR ---
Bala slept well overnight after receiving a Trazodone with his HS medications. His left arm continues to leak serous fluid although it is much less firm to the touch this morning. he is very pleasantly confused, and is still very frequently visually and auditorily hallucinating. patient remains very weak, and is a two person maximum to pivot or change in the bed. Slight improvement in potassium this morning. (was 2.7 yesterday, now 3.0) No change in Magnesium level which has been 1.4 for the last 3 days.
[2022-07-27 07:28] VITALS: BP 127/70
[2022-07-27 15:42] VITALS: BP 130/100
--- NOTE | 2022-07-27 17:58 | NUR ---
SHIFT SUMMARY PT A&O X 2-3. CAN BE FORGETFUL AT TIMES. IS PLEASANT & COOPERATIVE WITH ALL CARE. DENIES PAIN, SOB OR ANY PHYSICAL DISCOMFORT. SAT IN CHAIR FOR LUNCH & DINNER. CONTINUES TO HAVE AUDITORY & VISUAL HALLUCINATIONS. TODAY'S K RESULT WAS 3.0, CA+ 10.2 AND MAG 1.4. K & MAG REPLACED VIA IV TODAY PER MD ORDER. LABS ARE ORDERED FOR TOMORROW AM. PLAN IS FOR REHAB PLACEMENT UPON DC.
[2022-07-27 19:49] VITALS: BP 110/71
[2022-07-28 02:36] VITALS: BP 126/78
--- NOTE | 2022-07-28 05:02 | NUR ---
SHIFT SUMMARY PT IS A&O2-3 THIS SHIFT, CONFUSED TO TIME AND PLACE WITH AUDITORY AND VISUAL HALLUCINATIONS OVERNIGHT, PTY IS ON RA, VSS, NO COMPLAINTS OF PAIN OR DISCOMFORT OR ACUTE OVERNIGHT EVENTS, CONTINUE POC
[2022-07-28 05:06] LABS: Bun/Creatinine Ratio 19.1 (12.0-20.0); Creatinine, Blood 1.62 mg/dL (0.60-1.20); Magnesium, Blood 1.5 mg/dL (1.6-2.4); Phosphorus, Blood 3.3 mg/dL (2.5-4.9); Potassium, Blood 2.9 mmol/L (3.5-5.5)
[2022-07-28 07:27] VITALS: BP 121/87
--- NOTE | 2022-07-28 11:46 | NUR ---
AM RN NOTE MR LEYVA IS ABLE TO ANSWER ORIENTATION QUESTIONS FOR NAME, LOCATION AND DATE BUT CONVERSATION IS NON-FLOWING AND CONFUSED AND HE DESCRIBES HALLUCINATIONS. C/O CONSIPATION WHICH HE TOLD DR SANDRA. HE AMBULATED IN FOR A SHOWER THIS AM, 2 PERSON ASSIST AND WALKER/GAIT BELT. C/O GENERALISED PAIN IN ARMS, LEGS AND BACK THAT HE SAID IS CHRONIC AND AT HOME HE DOES NOT TAKE PAIN MEDS. LEFT ARM RED, SWOLLEN AND TENDER, GOOD SENSATION TO LEFT HAND. BED LOW, CALL LIGHT IN REACH. BED AND CHAIR ALARMS USED.
[2022-07-28 15:15] VITALS: BP 122/83
--- NOTE | 2022-07-28 16:01 | NUR ---
SHIFT SUMMARY MR LEYVA HAS BEEN CONFUSED THROUGHOUT THE DAY. HE IS DESCRIBING VISUAL AND AUDITORY HALLUCINATIONS. HE C/O GENERALISED PAIN NOT CHANGED WITH TYLENOL. HE C/O CONSTIPATION - TOOK SENNACOT AND MIRALAX AND FLUIDS ENCOURAGED. ABDOMEN ROUND AND SOFT. HE HAS BEEN CALM AND COOPERATIVE, USING CALL LIGHT AND HAS NOT BEEN RESTLESS. BED LOW, CALL LIGHT IN REACH, BED ALARM USED.
[2022-07-28 19:07] VITALS: BP 118/83
[2022-07-29 04:35] VITALS: BP 114/63
[2022-07-29 05:05] LABS: Albumin, Blood 2.5 g/dL (3.4-5.0); Anion Gap 3 mmol/L (6-16); Blood Urea Nitrogen 24 mg/dL (8-24); Bun/Creatinine Ratio 13.9 (12.0-20.0); CO2, Blood 27 mmol/L (21-32); Calcium, Blood 9.1 mg/dL (8.5-10.1); Chloride, Blood 110 mmol/L (98-108); Creatinine, Blood 1.73 mg/dL (0.60-1.20); Glomerular Filtration Rate 43 (60-); Glucose, Blood 94 mg/dL (70-99); Magnesium, Blood 1.9 mg/dL (1.6-2.4); Phosphorus, Blood 3.3 mg/dL (2.5-4.9); Potassium, Blood 3.6 mmol/L (3.5-5.5); Sodium, Blood 140 mmol/L (136-145)
--- NOTE | 2022-07-29 06:35 | NUR ---
PT CONTINUES TO BE CONFUSED. CALLS FREQUENTLY AT TIMES FOR NEEDS THAT ARE NOT PART OF SITUATION.
[2022-07-29 07:17] VITALS: BP 91/52
[2022-07-29 16:24] VITALS: BP 78/55
[2022-07-29 16:34] VITALS: BP 112/70
--- NOTE | 2022-07-29 17:40 | NUR ---
SHIFT SUMMARY MR ISAAC IS ABLE TO ANSWER ORIENTATION QUESTIONS CORRECTLY FOR SELF, LOCATION AND DATE, BUT CONFUSED ANSWERS TO WHY HE IS HERE. HE HAS DESCRIBED VISUAL AND AUDITORY HALLUCINATIONS TO ME AND HAS A LOT OF CONFUSED CONVERSATION. HE CONTINUES TO C/O CONSTIPATION, GIVEN MIRALAX AND SENNACOT, DID HAVE A BM TODAY. ALSO C/O STRONG COUGH, BUT COUGH NOT HEARD BY RN. PO FLUIDS ENCOURAGED. HE AMBULATED WITH PT THIS AM. BED LOW, BED ALARM AND CHAIR ALARM USED, CALL LIGHT IN REACH.
[2022-07-29 19:12] VITALS: BP 108/71
[2022-07-30 04:08] VITALS: BP 104/74
[2022-07-30 05:01] LABS: Albumin, Blood 2.4 g/dL (3.4-5.0); Anion Gap 4 mmol/L (6-16); Blood Urea Nitrogen 21 mg/dL (8-24); Bun/Creatinine Ratio 12.4 (12.0-20.0); CO2, Blood 24 mmol/L (21-32); Calcium, Blood 8.8 mg/dL (8.5-10.1); Chloride, Blood 111 mmol/L (98-108); Creatinine, Blood 1.69 mg/dL (0.60-1.20); Glomerular Filtration Rate 45 (60-); Glucose, Blood 92 mg/dL (70-99); Magnesium, Blood 1.8 mg/dL (1.6-2.4); Phosphorus, Blood 3.4 mg/dL (2.5-4.9); Potassium, Blood 3.5 mmol/L (3.5-5.5); Sodium, Blood 139 mmol/L (136-145)
--- NOTE | 2022-07-30 06:09 | NUR ---
PT CONTINUES TO BE CONFUSED, SLEPT WELL FOR MOST OF SHIFT, LARGE BM.
[2022-07-30 07:04] VITALS: BP 107/77
[2022-07-30 15:08] LABS: M-SPIKE, % Not Observed % (Not Observed); PROTEIN,TOTAL,URINE 22.5 mg/dL (Not Estab.)
[2022-07-30 15:13] VITALS: BP 112/75
--- NOTE | 2022-07-30 17:34 | NUR ---
SHIFT SUMMARY PATIENT IS ALERT BUT CONFUSED. VITAL SIGNS REVIEWED. PATIENT HAS HAD NO COMPLAINTS OF PAIN, NAUSEA, SOB OR VOMITTING. PATIENT HAS WORKED WITH PHYSICAL THERAPY WELL TODAY. PATIENT IS AWAITING PLACEMENT FOR REHAB. NO ACUTE EVENTS THIS SHIFT. BED IN LOCKED AND LOWEST POSITION. CALL LIGHT IN PLACE. WILL MONITOR UNTIL SHIFT CHANGE.
[2022-07-30 19:37] VITALS: BP 123/75
[2022-07-31 04:24] VITALS: BP 115/78
--- NOTE | 2022-07-31 05:48 | NUR ---
MINIMAL SLEEP OVERNIGHT. PT ASKING TO TALK TO DR ABOUT "THIS HORRIBLE COUGH" PT LUNGS CLEAR AND NO COUGH HEARD OVERNIGHT. PT AWARE OF POSSIBLE D/C TODAY TO FACILITY.
[2022-07-31 07:09] VITALS: BP 123/78
[2022-07-31] MEDS ORDERED: GABA100 PO (13:03)
[2022-07-31] MEDS ORDERED: CINA30 PO (13:04)
[2022-07-31] MEDS ORDERED: EUTHYROX112 MCG PO (13:04)
[2022-07-31] MEDS ORDERED: FAMO20 PO (13:05)
[2022-07-31] MEDS ORDERED: DOCUZEN 8.6-501 EACH PO (13:05)
[2022-07-31] MEDS ORDERED: Cytomel5 MCG PO (13:06)
[2022-07-31] MEDS ORDERED: MAGNESIUM OXID500 MG PO (13:06)
[2022-07-31] MEDS ORDERED: MIRALAX17 GM PO (13:06)
[2022-07-31] MEDS ORDERED: K-Phos Origina500 MG PO (13:07)
[2022-07-31] MEDS ORDERED: POTCHL20ER PO (13:07)
[2022-07-31] MEDS ORDERED: VITAMIN D32000 UNI1 PO (13:08)
[2022-07-31 13:20] LABS: SARS-Cov-2 (COVID-19) PCR, MMC Negative (NEGATIVE)
[2022-07-31 15:29] VITALS: BP 125/77
--- NOTE | 2022-07-31 15:52 | NUR ---
DISCHARGE REPORT CALLED TO NISA WINSLOW NURSE. NO FURTHER QUESTIONS REQUIRED AT TIME OF REPORT. PT EDUCATED ON DISCHARGE AND PICKED UP VIA WHEELCHAIR WITH [facility]. NO ACUTE CHANGES IN ASSESSMENT PRIOR TO DC. IV REMOVED & INTACT. PT PLEASANT AND SMILING ON DEPARTURE.
[2022-08-01 14:11] LABS: 25-HYDROXY, VITAMIN D 10 ng/mL (.); 25-HYDROXY, VITAMIN D-2 <1.0 ng/mL (.); 25-HYDROXY, VITAMIN D-3 10 ng/mL (.)
== END 2022-07-31 15:48 | DRG 682 ==
LOC: ER 16:52 → PCU 18:43 → MEDS 07-24 09:05
PROVIDERS: Emergency Medicine; Internal Medicine; Internal Medicine Nephrology; ADMIT Internal Medicine
PROC: 0T9B70Z Drainage of Bladder with Drainage Device, Via Natural or Artificial Opening (ICD-10-PCS; principal; 2022-07-20)
DX: N17.0 Acute kidney failure with tubular necrosis (principal); G92.8 Other toxic encephalopathy; M62.82 Rhabdomyolysis; E87.20 Acidosis, unspecified; B17.9 Acute viral hepatitis, unspecified; E87.1 Hypo-osmolality and hyponatremia; R65.10 Systemic inflammatory response syndrome (SIRS) of non-infectious origin without acute organ dysfunction; F41.9 Anxiety disorder, unspecified; F03.90 Unspecified dementia, unspecified severity, without behavioral disturbance, psychotic disturbance, mood disturbance, and anxiety; E83.52 Hypercalcemia; E87.6 Hypokalemia; E83.42 Hypomagnesemia; E83.39 Other disorders of phosphorus metabolism; I95.9 Hypotension, unspecified; E03.9 Hypothyroidism, unspecified; G40.909 Epilepsy, unspecified, not intractable, without status epilepticus; E11.42 Type 2 diabetes mellitus with diabetic polyneuropathy; M54.9 Dorsalgia, unspecified; G89.29 Other chronic pain; E11.43 Type 2 diabetes mellitus with diabetic autonomic (poly)neuropathy; K31.84 Gastroparesis; R77.8 Other specified abnormalities of plasma proteins; E11.65 Type 2 diabetes mellitus with hyperglycemia; E86.0 Dehydration; K59.00 Constipation, unspecified; Z20.822 Contact with and (suspected) exposure to COVID-19; Z88.0 Allergy status to penicillin; Z88.8 Allergy status to other drugs, medicaments and biological substances; Z88.2 Allergy status to sulfonamides; Z91.041 Radiographic dye allergy status; Z79.899 Other long term (current) drug therapy; Z90.49 Acquired absence of other specified parts of digestive tract; Z79.891 Long term (current) use of opiate analgesic
CPT/HCPCS: 0241U; 36415; 51702; 51798; 70450; 71045; 76536; 76770; 78071; 80047; 80048; 80053; 80069; 81001; 82306; 82310; 82330; 82397; 82550; 82553; 82570; 82652; 82784; 82803; 82947; 83521; 83605; 83690; 83735; 83880; 83935; 83970; 84100; 84133; 84155; 84156; 84165; 84166; 84439; 84443; 84481; 84484; 85014; 85025; 86334; 87040; 92526; 92610; 93005; 93010; 94760; 94762; 96365-59; 96366-59; 96368; 96372-59; 96375-59; 97110; 97116; 97162; 97166; 97530; 97535; 99285-25; A9270; A9500; C1751; J0630; J0696; J1644; J2405; J3475; J3480; J3489; J7030; J7050; J7060; J7120; U0004

== ENCOUNTER 2024-07-25 12:29 | Emergency (ER) | payer OTHER ==
[~2024-07-25] VITALS: Ht 177.8 cm; Wt 90.7 kg
[~2024-07-25 12:29] MED LIST changes: +CINA30 PO; +Cytomel5 MCG PO; +DOCUZEN 8.6-501 EACH PO; +EUTHYROX112 MCG PO; +FAMO20 PO; +GABA100 PO; +HYDROCODONE-AC1 EA19 PO; +K-Phos Origina500 MG PO; +MAGNESIUM OXID500 MG PO; +MIRALAX17 GM PO; +VITAMIN D32000 UNI1 PO
[2024-07-25] MEDS ORDERED: TraMADol HCl 50 MG Tab PO ONE (13:50)
[2024-07-25 15:16] VITALS: BP 144/78
== END 2024-07-25 14:30 | disposition home or self-care (01) ==
LOC: ER 12:29
DX: S82.142A Displaced bicondylar fracture of left tibia, initial encounter for closed fracture (principal); E11.9 Type 2 diabetes mellitus without complications; Z88.0 Allergy status to penicillin; Z88.5 Allergy status to narcotic agent; Z88.2 Allergy status to sulfonamides; Z91.041 Radiographic dye allergy status; Z79.899 Other long term (current) drug therapy; Z79.2 Long term (current) use of antibiotics; W17.89XA Other fall from one level to another, initial encounter
CPT/HCPCS: 73502; 73560-LT; 99284-25; A9270